=== PATIENT | female | born 1930 | race Caucasian/White ===

== ENCOUNTER 2018-09-20 10:04 | Inpatient (IN) | payer OTHER ==
[~2018-09-20] VITALS: Ht 152.4 cm; Wt 54.0 kg
[2018-09-20 11:12] LABS: BASOPHIL % 0.7 % (0-2); PLATELET COUNT 222 x10^3mcL (130-400); RED CELL DISTRIBUTION WIDTH 12.9 % (11.5-14.5)
[2018-09-20 11:28] LABS: ALKALINE PHOSPHATASE 63 U/L (46-116); ALT/SGPT 10 U/L (14-59); AST/SGOT 18 U/L (15-37); BILIRUBIN TOTAL 0.49 mg/dL (0.20-1.00); CALCIUM 8.2 mg/dL (8.5-10.1); CARBON DIOXIDE 16.1 mmol/L (21-32); CHLORIDE SERUM 109 mmol/L (98-107); CHOLESTEROL 165 mg/dL (<200); CREATININE SERUM 3.7 mg/dL (0.6-1.0); GLUCOSE SERUM 109 mg/dL (74-106); POTASSIUM SERUM 3.8 mmol/L (3.5-5.1); SODIUM SERUM 139 mmol/L (136-145); TOTAL PROTEIN, SERUM 7.4 g/dL (6.4-8.2)
[2018-09-20 11:29] LABS: ALBUMIN 3.2 g/dL (3.4-5.0)
[2018-09-20] MEDS ORDERED: LIPI20 PO (12:17)
[2018-09-20] MEDS ORDERED: CARVEDILOL12.5 M1 PO (12:17)
[2018-09-20] MEDS ORDERED: ASPIR LOW81 MG PO (12:18)
[2018-09-20 14:07] VITALS: BP 117/54
[2018-09-20 14:15] VITALS: Ht 152.4 cm; Wt 54.0 kg
[2018-09-20 16:49] VITALS: BP 163/40
[2018-09-20 19:50] LABS: AMPHETAMINE QUAL UR NONE DETECTED (See below)
[2018-09-20 21:42] VITALS: BP 136/37
[2018-09-21 06:04] VITALS: BP 100/41
[2018-09-21 06:17] LABS: BASOPHIL % 0.6 % (0-2); PLATELET COUNT 221 x10^3mcL (130-400); RED CELL DISTRIBUTION WIDTH 13.5 % (11.5-14.5)
[2018-09-21 06:18] LABS: IRON 132 ug/dL (50-170)
[2018-09-21 06:23] LABS: TOTAL IRON BINDING CAPACITY 217 ug/dL (250-450)
[2018-09-21 06:33] LABS: ALKALINE PHOSPHATASE 62 U/L (46-116); ALT/SGPT 11 U/L (14-59); AST/SGOT 18 U/L (15-37); BILIRUBIN TOTAL 0.64 mg/dL (0.20-1.00); CARBON DIOXIDE 17.5 mmol/L (21-32); CHLORIDE SERUM 109 mmol/L (98-107); CREATININE SERUM 2.9 mg/dL (0.6-1.0); GLUCOSE SERUM 118 mg/dL (74-106); MAGNESIUM 1.4 mg/dL (1.8-2.4); PHOSPHOROUS 3.8 mg/dL (2.5-4.9); SODIUM SERUM 142 mmol/L (136-145); TOTAL PROTEIN, SERUM 7.4 g/dL (6.4-8.2)
[2018-09-21 07:06] LABS: ALBUMIN 3.2 g/dL (3.4-5.0)
[2018-09-21 09:50] VITALS: BP 150/39
[2018-09-21 12:16] VITALS: BP 169/37
[2018-09-21 16:10] VITALS: BP 146/59
[2018-09-21 21:21] VITALS: BP 141/109
[2018-09-22 06:14] LABS: BASOPHIL % 0.7 % (0-2); PLATELET COUNT 217 x10^3mcL (130-400); RED CELL DISTRIBUTION WIDTH 13.9 % (11.5-14.5)
[2018-09-22 06:31] LABS: ALKALINE PHOSPHATASE 57 U/L (46-116); ALT/SGPT 10 U/L (14-59); AST/SGOT 20 U/L (15-37); CALCIUM 8.1 mg/dL (8.5-10.1); CARBON DIOXIDE 17.9 mmol/L (21-32); CHLORIDE SERUM 113 mmol/L (98-107); CREATININE SERUM 2.3 mg/dL (0.6-1.0); GLUCOSE SERUM 100 mg/dL (74-106); MAGNESIUM 2.4 mg/dL (1.8-2.4); PHOSPHOROUS 2.9 mg/dL (2.5-4.9); POTASSIUM SERUM 3.6 mmol/L (3.5-5.1); SODIUM SERUM 143 mmol/L (136-145); TOTAL PROTEIN, SERUM 7.1 g/dL (6.4-8.2)
[2018-09-22 06:35] VITALS: BP 133/49
[2018-09-22 06:49] LABS: ALBUMIN 3.1 g/dL (3.4-5.0)
[2018-09-22 07:07] VITALS: BP 154/42
[2018-09-22 13:30] VITALS: BP 144/37
[2018-09-22 15:00] VITALS: BP 143/41
[2018-09-22 21:25] VITALS: BP 128/49
[2018-09-22 22:15] LABS: UA SPECIFIC GRAVITY 1.015 (1.005-1.035); microscopic required? YES; urine erythrocyte NEGATIVE (NEGATIVE)
[2018-09-23 05:22] VITALS: BP 123/40
[2018-09-23 07:42] LABS: BASOPHIL % 0.8 % (0-2); PLATELET COUNT 204 x10^3mcL (130-400); RED CELL DISTRIBUTION WIDTH 13.8 % (11.5-14.5)
[2018-09-23 07:55] LABS: ALKALINE PHOSPHATASE 59 U/L (46-116); ALT/SGPT 16 U/L (14-59); AST/SGOT 18 U/L (15-37); BILIRUBIN TOTAL 0.63 mg/dL (0.20-1.00); CARBON DIOXIDE 17.9 mmol/L (21-32); CHLORIDE SERUM 112 mmol/L (98-107); CREATININE SERUM 2.1 mg/dL (0.6-1.0); GLUCOSE SERUM 90 mg/dL (74-106); MAGNESIUM 1.8 mg/dL (1.8-2.4); PHOSPHOROUS 2.8 mg/dL (2.5-4.9); POTASSIUM SERUM 3.4 mmol/L (3.5-5.1); SODIUM SERUM 143 mmol/L (136-145); TOTAL PROTEIN, SERUM 6.7 g/dL (6.4-8.2)
[2018-09-23 08:08] LABS: ALBUMIN 2.8 g/dL (3.4-5.0)
[2018-09-23 08:20] VITALS: BP 130/35
[2018-09-23 12:56] VITALS: BP 130/35
== END 2018-09-23 13:27 | disposition home or self-care (01) | DRG 368 ==
LOC: ED 10:04 → DU 12:53
PROVIDERS: Internal Medicine; Internal Medicine Nephrology; Specialist; ADMIT Internal Medicine Pulmonary Disease
PROC: 0D758ZZ Dilation of Esophagus, Via Natural or Artificial Opening Endoscopic (ICD-10-PCS; 2018-09-22)
PROC: 0DB58ZX Excision of Esophagus, Via Natural or Artificial Opening Endoscopic, Diagnostic (ICD-10-PCS; principal; 2018-09-22 09:30)
DX: Q39.4 Esophageal web (principal); N17.0 Acute kidney failure with tubular necrosis; G93.49 Other encephalopathy; E87.2 Acidosis; E86.0 Dehydration; I12.9 Hypertensive chronic kidney disease with stage 1 through stage 4 chronic kidney disease, or unspecified chronic kidney disease; N18.9 Chronic kidney disease, unspecified; R13.10 Dysphagia, unspecified; E87.6 Hypokalemia; E83.42 Hypomagnesemia; K29.70 Gastritis, unspecified, without bleeding; K22.4 Dyskinesia of esophagus; G89.29 Other chronic pain; R00.1 Bradycardia, unspecified; I25.10 Atherosclerotic heart disease of native coronary artery without angina pectoris; Z98.1 Arthrodesis status; I25.2 Old myocardial infarction; Z79.82 Long term (current) use of aspirin; Z68.24 Body mass index [BMI] 24.0-24.9, adult; Z79.01 Long term (current) use of anticoagulants; Z95.5 Presence of coronary angioplasty implant and graft
CPT/HCPCS: 36600; 43235; 92526-GN; 92610; C1769; G0480; J1200; J1610; J2250; J2310; J2405; J3010; J3475; J3480; J3490; Q0092